=== PATIENT | male | born 1990 | race African-American/Black ===

== ENCOUNTER 2016-11-10 14:40 | Outpatient (CLI) | payer OTHER, MEDICAID ==
[2016-11-10 15:27] LABS: HEMATOCRIT 15.6 % (37.9-51.0); HGB HCT DIFFERENCE 2.7; MEAN CORPUSCULAR HEMOGLOBIN 37.1 pg (27.0-33.4); MEAN CORPUSCULAR VOLUME 95 fl (80-97); RED BLOOD COUNT 1.64 10^6/uL (4.35-5.55); RED CELL DISTRIBUTION WIDTH 23.1 % (11.5-14.0); WHITE BLOOD COUNT 14.3 10^3/uL (4.0-10.5)
[2016-11-10] MEDS ORDERED: ACETAMINOPHEN 325 MG TABLET PO PRN (15:31)
[2016-11-10] MEDS ORDERED: DIPHENHYDRAMINE HCL 25 MG CAPSULE PO PRN (15:32)
[2016-11-10] MEDS ORDERED: FUROSEMIDE INJ/PF 20 MG/2 ML SDV IV PRN (15:33)
[2016-11-10 15:43] LABS: MEAN CORPUSCULAR HGB CONC 39.1 g/dL (32.0-36.0)
[2016-11-10 15:45] LABS: HEMOGLOBIN 6.1 g/dL (13.5-17.0)
[2016-11-11 00:04] VITALS: BP 121/70
[2016-11-11 00:33] LABS: HEMATOCRIT 25.4 % (37.9-51.0); HGB HCT DIFFERENCE 3.1; MEAN CORPUSCULAR HEMOGLOBIN 34.8 pg (27.0-33.4); MEAN CORPUSCULAR VOLUME 93 fl (80-97); RED BLOOD COUNT 2.73 10^6/uL (4.35-5.55); RED CELL DISTRIBUTION WIDTH 18.9 % (11.5-14.0); WHITE BLOOD COUNT 16.4 10^3/uL (4.0-10.5)
[2016-11-11 00:35] LABS: HEMOGLOBIN 9.5 g/dL (13.5-17.0); MEAN CORPUSCULAR HGB CONC 37.4 g/dL (32.0-36.0)
== END 2016-11-11 00:14 | disposition home or self-care (01) ==
LOC: II 14:40 → 2S 14:41 → II 11-11 00:14
PROVIDERS: ATTEND Internal Medicine Medical Oncology
PROC: 30233N1 Transfusion of Nonautologous Red Blood Cells into Peripheral Vein, Percutaneous Approach (ICD-10-PCS; principal; 2016-11-10)
DX: D57.1 Sickle-cell disease without crisis (principal)
CPT/HCPCS: 86900; 86901; 36415; 36430; 86850; 85027; 86920; P9016; J1940

== ENCOUNTER 2017-06-10 00:49 | Emergency (ER) | payer OTHER, MEDICAID ==
[2017-06-10 00:57] VITALS: BP 115/67
--- NOTE | 2017-06-10 01:22 | ER Document Report ---
ED General - General Chief Complaint: Facial Swelling Stated Complaint: FACE PAIN Time Seen by Provider: 06/10/17 01:09 Notes: Patient is a 26-year-old male with a past medical history of sickle cell anemia who presents with bilateral facial swelling worse in the left after having jaw surgery less than 24 hours ago. Patient states that he was concerned about the degree of swelling and was concerned he may have an infection. He denies any pain to the area. He has been applying ice to the area with improvement of the swelling. He has not noted that he worsens a swelling. He has not contacted his surgeon regarding his concerns today. He denies any difficulty breathing or swallowing. TRAVEL OUTSIDE OF THE [place] IN LAST 30 DAYS: No - Related Data Allergies/Adverse Reactions: ibuprofen [From Motrin] Allergy (Verified 06/10/17 00:50) Past Medical History - General Information source: Patient - Social History Smoking Status: Never Smoker Frequency of alcohol use: None Drug Abuse: None Lives with: Spouse/Significant other Family History: Reviewed & Not Pertinent - Past Medical History Cardiac Medical History: Reports: Hx Heart Murmur Denies: Hx Congestive Heart Failure, Hx Heart Attack, Hx Hypertension Pulmonary Medical History: Denies: Hx Asthma, Hx Bronchitis, Hx COPD, Hx Pneumonia, Hx Tuberculosis Neurological Medical History: Denies: Hx Seizures Renal/ Medical History: Denies: Hx Benign Prostatic Hyperplasia, Hx End Stage Renal Disease, Hx Kidney Stones GI Medical History: Denies: Hx Cirrhosis, Hx Gastroesophageal Reflux Disease, Hx Ulcer Musculoskeltal Medical History: Denies Hx Arthritis, Denies Hx Multiple Sclerosis Psychiatric Medical History: Denies: Hx Bipolar Disorder, Hx Depression, Hx Schizophrenia Past Surgical History: Reports: Hx Tonsillectomy. Denies: Hx Pacemaker - Immunizations Hx Diphtheria, Pertussis, Tetanus Vaccination: Yes Review of Systems - Review of Systems Notes: Constitutional: Negative for fever. HENT: Negative for sore throat. Positive for facial swelling Eyes: Negative for visual changes. Cardiovascular: Negative for chest pain. Respiratory: Negative for shortness of breath. Gastrointestinal: Negative for abdominal pain, vomiting or diarrhea. Genitourinary: Negative for dysuria. Musculoskeletal: Negative for back pain. Skin: Negative for rash. Neurological: Negative for headaches, weakness or numbness. 10 point ROS negative except as marked above and in HPI. Physical Exam - Vital signs Vitals: Temp Pulse Resp BP Pulse Ox 99.0 F 71 20 115/67 94 06/10/17 00:55 06/10/17 00:55 06/10/17 00:55 06/10/17 00:55 06/10/17 00:55 Interpretation: Normal Notes: PHYSICAL EXAMINATION: GENERAL: Well-appearing, well-nourished and in no acute distress. HEAD: Atraumatic, normocephalic. EYES: sclera anicteric, conjunctiva are normal. ENT: Moist mucous membranes. Mild bilateral facial swelling more notable on the left. Poor dentition throughout. Oropharynx is widely patent. Uvula is midline. NECK: Normal range of motion LUNGS: Normal work of breathing HEART: 2+ radial pulses bilaterally EXTREMITIES: no pitting or edema. No cyanosis. NEUROLOGICAL: No focal neurological deficits. Moves all extremities spontaneously and on command. PSYCH: Normal mood, normal affect. SKIN: Warm, Dry, normal turgor, no rashes or lesions noted. Course - Re-evaluation Re-evalutation: 06/10/17 01:55 Presentation of a very mild amount of facial swelling slightly worse in the left after patient apparently had jaw surgery. I do not suspect any acute infection or life-threatening pathology. It appears the patient most likely has postoperative inflammation and this would be completely extracted within 24 hours of surgery. I encouraged the patient continue to ice the area and follow- up with the surgeon. At this time will discharge with return precautions and follow-up recommendations. Verbal discharge instructions given a the bedside and opportunity for questions given. Medication warnings reviewed. Patient is in agreement with this plan and has verbalized understanding of return precautions and the need for primary care follow-up in the next 24-72 hours. - Vital Signs Vital signs: Temp Pulse Resp BP Pulse Ox 99.0 F 71 20 115/67 94 06/10/17 00:55 06/10/17 00:55 06/10/17 00:55 06/10/17 00:55 06/10/17 00:55 Discharge - Discharge Clinical Impression: Facial swelling Condition: Good Disposition: HOME, SELF-CARE Additional Instructions: Your swelling is likely due to your surgery as opposed to an infection. Please do return if you began having worsening pain, fever, or any other symptoms that would suggest an acute infection. Please continue to apply ice to the area regularly as well as take ibuprofen as needed for pain. Referrals: DAYER,BRITTANY J, MD [Primary Care Provider] - Follow up as needed
== END 2017-06-10 01:30 | disposition home or self-care (01) ==
LOC: ER 00:49
DX: R22.0 Localized swelling, mass and lump, head (principal); R51 Headache; D57.1 Sickle-cell disease without crisis
CPT/HCPCS: 99283